=== PATIENT | male | born 1995 | race Asian ===

== ENCOUNTER 2018-12-13 22:08 | Emergency (ER) | payer MEDICAID ==
[~2018-12-13] VITALS: Ht 167.6 cm; Wt 55.6 kg
[2018-12-13 22:54] VITALS: BP 133/81
[2018-12-14] MEDS ORDERED: IBUP-1985 PO (00:44)
== END 2018-12-14 00:55 | disposition home or self-care (01) ==
LOC: ER 22:09
DX: M94.0 Chondrocostal junction syndrome [Tietze] (principal); Z79.899 Other long term (current) drug therapy
CPT/HCPCS: 71045; 99283

== ENCOUNTER 2019-01-04 12:47 | Emergency (ER) | payer MEDICAID ==
[~2019-01-04] VITALS: Ht 167.6 cm; Wt 56.0 kg
[~2019-01-04 12:47] MED LIST: HYDR-3965 PO; IBUP-1985 PO
[2019-01-04 13:05] VITALS: BP 112/61
[2019-01-04] MEDS ORDERED: HYDR-3965 PO (13:41)
== END 2019-01-04 14:01 | disposition home or self-care (01) ==
LOC: ER 12:48
DX: R51 Headache (principal); Z76.0 Encounter for issue of repeat prescription; Z88.2 Allergy status to sulfonamides; Z79.899 Other long term (current) drug therapy
CPT/HCPCS: 99283

== ENCOUNTER 2019-08-27 12:12 | Emergency (ER) | payer MEDICAID ==
[~2019-08-27] VITALS: Ht 167.6 cm; Wt 54.0 kg
[~2019-08-27 12:12] MED LIST changes: -HYDR-3965 PO
[2019-08-27] MEDS ORDERED: normal saline 1000ML IV soln IVB ONE (13:15)
[2019-08-27] MEDS ORDERED: ketorolac trometh. 30mg/ml inj. IV ONE (13:15)
[2019-08-27] MEDS ORDERED: acetaminophen 325mg tablet PO ONE (13:15)
[2019-08-27] MEDS ORDERED: ondansetron/PF 4mg/2ml inj IV ONE (13:15)
[2019-08-27] MEDS ORDERED: proCHLORperazine 10 MG/2 ml inj IV ONE (14:55)
[2019-08-27] MEDS ORDERED: aspirin 325mg tablet PO ONE (14:55)
[2019-08-27 15:07] LABS: BASOPHILS # (AUTO) 0.1 X10'3 (0-0.2); BASOPHILS % (AUTO) 0.9 % (0-1); EOSINOPHILS # (AUTO) 0.1 X10'3 (0-0.9); EOSINOPHILS % (AUTO) 0.6 % (0-6); HEMATOCRIT 43.3 % (42.0-52.0); HEMOGLOBIN 14.9 g/dl (14.0-17.9); LYMPHOCYTES # (AUTO) 1.5 X10'3 (1.1-4.8); LYMPHOCYTES % (AUTO) 17.2 % (21-51); MEAN CORPUSCULAR HEMOGLOBIN 30.1 PG (27.0-31.0); MEAN CORPUSCULAR HGB CONC 34.4 g/dL (33.0-36.5); MEAN CORPUSCULAR VOLUME 87.5 FL (78-98); MEAN PLATELET VOLUME 8.1 FL (7.4-10.4); MONOCYTES # (AUTO) 1.3 X10'3 (0-0.9); MONOCYTES % (AUTO) 14.2 % (2-12); NEUTROPHILS # (AUTO) 5.9 X10'3 (1.8-7.7); NEUTROPHILS % (AUTO) 67.1 % (42-75); PLATELET COUNT 223 X10'3 (140-440); RED BLOOD COUNT 4.95 X10'6 (4.70-6.10); WHITE BLOOD COUNT 8.8 X10'3 (4.5-11.0)
[2019-08-27 15:14] LABS: ALANINE AMINOTRANSFERASE 15 U/L (12-78); ALBUMIN 3.8 G/DL (3.4-5.0); ALKALINE PHOSPHATASE 72 IU/L (46-116); ANION GAP 11 (8-16); ASPARTATE AMINO TRANSFERASE 25 U/L (10-37); BILIRUBIN,TOTAL 0.5 MG/DL (0.1-1.0); BLOOD UREA NITROGEN 12 MG/DL (7-18); BUN/CREATININE RATIO 11.2 (5.4-32.0); CHLORIDE 102 MMOL/L (99-107); CREATININE 1.07 MG/DL (0.60-1.10); GLUCOSE 82 MG/DL (70-104); POTASSIUM 3.7 MMOL/L (3.5-5.1); SODIUM 137 MMOL/L (135-145); TOTAL CARBON DIOXIDE 24.1 MMOL/L (24-32); TOTAL PROTEIN 7.5 G/DL (6.4-8.2); eGFR 85 ML/MIN
[2019-08-27] MEDS ORDERED: ONDA8TAB6 PO (16:29)
--- NOTE | 2019-08-27 16:32 | NUR ---
STREP SWAB WAS COLLECTED
[2019-08-27 16:40] VITALS: BP 106/69
== END 2019-08-27 16:38 | disposition home or self-care (01) ==
LOC: ER 12:15
DX: B34.9 Viral infection, unspecified (principal); Z88.2 Allergy status to sulfonamides; Z79.899 Other long term (current) drug therapy
CPT/HCPCS: 36415; 80053; 83605; 84145; 85025; 85610; 87040; 87081; 87502; 87503; 87880; 96374; 96375; 99284; J0780; J1885; J2405; J7030

== ENCOUNTER 2021-05-02 08:52 | Emergency (ER) | payer MEDICAID ==
[~2021-05-02] VITALS: Ht 167.6 cm; Wt 53.2 kg
[~2021-05-02 08:52] MED LIST changes: +ONDA8TAB6 PO
[2021-05-02 09:21] VITALS: BP 103/31
[2021-05-02] MEDS ORDERED: CEPH250T PO (10:15)
== END 2021-05-02 10:22 | disposition home or self-care (01) ==
LOC: ER 08:52
DX: H60.02 Abscess of left external ear (principal); Z72.89 Other problems related to lifestyle; Z88.2 Allergy status to sulfonamides; Z79.2 Long term (current) use of antibiotics; Z79.899 Other long term (current) drug therapy
CPT/HCPCS: 10060; 69000; 99283

== ENCOUNTER 2024-10-11 14:23 | Emergency (ER) | payer MEDICAID, OTHER ==
[~2024-10-11] VITALS: Ht 167.6 cm; Wt 55.6 kg
[2024-10-11 14:49] LABS: BASOPHILS # (AUTO) 0.1 X10'3 (0-0.2); BASOPHILS % (AUTO) 0.8 % (0-1); EOSINOPHILS # (AUTO) 0.1 X10'3 (0-0.9); EOSINOPHILS % (AUTO) 1.3 % (0-6); HEMATOCRIT 43.9 % (42.0-52.0); HEMOGLOBIN 14.7 g/dl (14.0-17.9); LYMPHOCYTES # (AUTO) 2.3 X10'3 (1.1-4.8); LYMPHOCYTES % (AUTO) 34.3 % (21-51); MEAN CORPUSCULAR HGB CONC 33.5 g/dL (33.0-36.5); MEAN CORPUSCULAR VOLUME 86.7 FL (78-98); MEAN PLATELET VOLUME 7.3 FL (7.4-10.4); MONOCYTES # (AUTO) 0.5 X10'3 (0-0.9); MONOCYTES % (AUTO) 7.2 % (2-12); NEUTROPHILS # (AUTO) 3.8 X10'3 (1.8-7.7); NEUTROPHILS % (AUTO) 56.4 % (42-75); PLATELET COUNT 277 X10'3 (140-440); RED BLOOD COUNT 5.06 X10'6 (4.70-6.10); RED CELL DISTRIBUTION WIDTH 12.6 % (11.5-14.5); WHITE BLOOD COUNT 6.8 X10'3 (4.5-11.0)
[2024-10-11 15:06] LABS: ALANINE AMINOTRANSFERASE 24 U/L (12-78); ALBUMIN 4.4 G/DL (3.4-5.0); ALBUMIN/GLOBULIN RATIO 1.5 (1.1-1.5); ALKALINE PHOSPHATASE 72 IU/L (46-116); ANION GAP 9 (8-16); ASPARTATE AMINO TRANSFERASE 25 U/L (10-37); BILIRUBIN,TOTAL 1.3 MG/DL (0.1-1.0); BLOOD UREA NITROGEN 7 MG/DL (7-18); BUN/CREATININE RATIO 7.4 (10.0-20.0); CALCIUM 9.1 MG/DL (8.5-10.1); CHLORIDE 103 MMOL/L (99-107); CREATININE 0.94 MG/DL (0.60-1.10); GLUCOSE 87 MG/DL (70-104); POTASSIUM 3.8 MMOL/L (3.5-5.1); SODIUM 139 MMOL/L (135-145); TOTAL CARBON DIOXIDE 26.6 MMOL/L (24-32); TOTAL PROTEIN 7.4 G/DL (6.4-8.2); eCRCL 91 ML/MIN; eGFR > 90 ML/MIN
[2024-10-11 15:14] LABS: PRO BRAIN NATRIURETIC PEPTIDE 77 PG/ML (0-125)
[2024-10-11 16:43] VITALS: BP 111/73; PULSE 86; RESP 16; TEMP 98.3; O2SAT 99
== END 2024-10-11 16:44 | disposition home or self-care (01) ==
LOC: ER 14:24
DX: R07.89 Other chest pain (principal); Z88.2 Allergy status to sulfonamides; Z88.8 Allergy status to other drugs, medicaments and biological substances
CPT/HCPCS: 36415; 71045; 80053; 83880; 84484; 85025; 93005; 99285